=== PATIENT | male | born 1975 | race Caucasian/White ===

== ENCOUNTER 2017-01-27 19:17 | Emergency (ER) | payer MEDICAID, OTHER ==
[~2017-01-27] VITALS: Ht 182.9 cm; Wt 106.0 kg
[~2017-01-27 19:17] MED LIST: ACET500C5 PO; IBUP800T25 PO; PANT40TA3 PO; POLY17PO6 PO; RANI-347 PO
[2017-01-27 19:37] VITALS: Ht 182.9 cm; Wt 106.0 kg
[2017-01-27] MEDS ORDERED: ONDANSETRON 4 MG INJ IV STA (22:26)
[2017-01-27] MEDS ORDERED: DIPHENHYDRAMINE 50 MG INJ IV STA (22:26)
[2017-01-27] MEDS ORDERED: HYDROCODONE/APAP (5/325) TAB PO ONE (22:30)
--- NOTE | 2017-01-27 23:07 | RADRPT ---
PROCEDURE: CT head, without contrast. CLINICAL INDICATION: Headache. TECHNIQUE: Noncontrast CT examination of the head, with axial, sagittal and coronal reformatted im ages. Automated dose exposure control was employed. CTDI: 43.38 and DLP: 720.23. COMPARISON: None. FINDINGS: No acute hemorrhage. Subarachnoid spaces are substantially preserved and symmetric. Ventricles ar e unremarkable. Dystrophic calcifications in the bilateral basal ganglia, otherwise nonspecific. No mass effect. [place]-white matter distinction is preserved without evident decreased attenuation t o suggest acute or recent infarct. Sinuses and osseous structures are unremarkable. IMPRESSION: No acute process in the head. RPTAT: [facility] Physician Jihan Date Time Electronically viewed and signed by Physician Jihan on 01/27/2017 23:06 /
[2017-01-27 23:09] LABS: ADD SCAN DIFF NO
[2017-01-27 23:10] LABS: BASOPHILS % 0.3 % (0.0-2.0); EOSINOPHILS # 0.2 10^3/ul (0.0-0.5); EOSINOPHILS % 1.9 % (0.0-7.0); HEMATOCRIT 41.5 % (42.0-52.0); HEMOGLOBIN 13.9 g/dl (14.0-18.0); LYMPHOCYTES # 4.1 10^3/ul (0.8-2.9); LYMPHOCYTES % 42.6 % (15.0-51.0); MEAN CORPUSCULAR HEMOGLOBIN 29.7 pg (29.0-33.0); MEAN CORPUSCULAR HGB CONC 33.5 g/dl (32.0-37.0); MEAN CORPUSCULAR VOLUME 88.7 fl (82.0-101.0); MEAN PLATELET VOLUME 9.7 fl (7.4-10.4); MONOCYTE # 0.9 10^3/ul (0.3-0.9); MONOCYTES % 8.8 % (0.0-11.0); NEUTROPHIL # 4.4 10^3/ul (1.6-7.5); NEUTROPHILS % 46.1 % (39.0-77.0); PLATELET COUNT 301 10^3/UL (140-415); RED BLOOD COUNT 4.68 10^6/ul (4.70-6.10); WHITE BLOOD COUNT 9.6 10^3/ul (4.8-10.8)
[2017-01-27 23:21] LABS: INR 0.88; PROTIME 11.9 Sec (12.2-14.2); PT RATIO 0.9
[2017-01-27 23:22] VITALS: BP 142/85; PULSE 63; RESP 18; TEMP 98.1
[2017-01-27 23:22] LABS: PARTIAL THROMBOPLASTIN TIME 30.1 Sec (25.0-35.0)
[2017-01-27 23:27] LABS: CALCIUM 9.1 mg/dl (8.4-10.2); CREATININE 1.12 mg/dl (0.61-1.24); POTASSIUM 4.1 mmol/L (3.5-5.1)
--- NOTE | 2017-01-27 23:49 | ERD ---
ER Documentation Chief Complaint Date/Time DATE: 01/27/17 TIME: 23:48 Chief Complaint headache x 2 weeks HPI This pleasant 41-year-old male patient presents to emergency department today with his . Patient Greek-speaking, able to provide translation. Reports 2 weeks of headache, headache not improving with Tylenol or Advil, patient reports difficulty sleeping, that the headache is not allowing him to sleep at night. Pain starts in the back of his neck and radiates to the top of his head, patient has pain in his right ear, 9 out of 10 on pain scale. Pain is described as sharp and throbbing. Patient denies any photosensitivity, neck stiffness, fever or chills. Patient has never had a headache like this in the past. Does not know the exact time when headaches started. Patient is noted to be hypertensive in triage, denies history of hypertension. Patient is on no routine medication, has no history of cardiovascular disease, hyperlipidemia, diabetes, chest pain shortness of breath or dizziness. ROS All systems reviewed and are negative except as per history of present illness. Medications Home Meds Active Scripts Ibuprofen* (Motrin*) 600 Mg Tab, 600 MG PO Q6, #30 TAB Prov:VINCENT CORAE 01/28/17 Acetaminophen* (Tylophen*) 500 Mg Capsule, 1 CAP PO Q6H Y for PAIN AND OR ELEVATED TEMP, #30 CAP Prov:KENROY GARCÍA PA-C 07/17/16 Polyethylene Glycol* (Miralax*) 17 Gm Powd.pack, 17 GM PO DAILY, #14 Prov:KENROY GARCÍA PA-C 07/17/16 Ibuprofen* (Motrin*) 800 Mg Tab, 800 MG PO Q6, #30 TAB Prov:KENROY GARCÍA PA-C 07/17/16 Pantoprazole* (Protonix*) 40 Mg Tablet., 40 MG PO DAILY, #20 TAB Prov:DEBORAH CHAIREZ MD 06/21/16 Reported Medications Ranitidine Hcl* (Ranitidine Hcl*) 75 Mg Tablet, 75 MG PO DAILY Y for HEARTBURN, #60 TAB 06/21/16 Allergies Allergies: Coded Allergies: No Known Drug Allergies (Verified Allergy, Unknown, 06/21/16) PMhx/Soc History of Surgery: No Anesthesia Reaction: No Hx Neurological Disorder: No Hx Respiratory Disorders: No Hx Cardiac Disorders: No Hx Psychiatric Problems: No Hx Miscellaneous Medical Probl: No Hx Alcohol Use: No Hx Substance Use: No Hx Tobacco Use: No Physical Exam Vitals Hypertension 176/80. Patient reassessed after medication for pain decreased hypertension to 142/85. Triage notes reviewed Physical Exam Const: No acute distress Head: Atraumatic Eyes: Normal Conjunctiva PERRLA, EOMI ENT: Bilateral tympanic membranes translucent with positive light reflex auditory canals are clear, nasal mucosa edematous, moist, no rhinorrhea. Pharynx moist. Tongue midline. Neck: No cervical point tenderness. No paraspinal muscle tenderness full range of motion with extension, flexion, lateral bending, and rotation.~ No meningismus. Resp: Chest rises and falls symmetrically, Cardio: Regular rate and rhythm, no murmurs Abd: Skin: Back: Neuro: Alert and oriented Face: EOMI, face and pharynx with normal sensation and function Motor: Normal strength throughout Sensation: Normal sensation throughout Speech: Normal Cerebel: Normal coordination Normal gait Normal finger to nose DTR: 2+ and symmetric upper/lower extremities Psych: Normal Mood and Affect Results 24 hrs Laboratory Tests Test 01/27/17 22:50 White Blood Count 9.610^3/ul Red Blood Count 4.6810^6/ul Hemoglobin 13.9g/dl Hematocrit 41.5% Mean Corpuscular Volume 88.7fl Mean Corpuscular Hemoglobin 29.7pg Mean Corpuscular Hemoglobin Concent 33.5g/dl Red Cell Distribution Width 13.0% Platelet Count 92878^3/UL Mean Platelet Volume 9.7fl Neutrophils % 46.1% Lymphocytes % 42.6% Monocytes % 8.8% Eosinophils % 1.9% Basophils % 0.3% Nucleated Red Blood Cells % 0.0/100WBC Neutrophils # 4.410^3/ul Lymphocytes # 4.110^3/ul Monocytes # 0.910^3/ul Eosinophils # 0.210^3/ul Basophils # 0.010^3/ul Nucleated Red Blood Cells # 0.010^3/ul Prothrombin Time 11.9Sec Prothrombin Time Ratio 0.9 INR International Normalized Ratio 0.88 Activated Partial Thromboplast Time 30.1Sec Sodium Level 141mmol/L Potassium Level 4.1mmol/L Chloride Level 105mmol/L Carbon Dioxide Level 29mmol/L Anion Gap 11 Blood Urea Nitrogen 21mg/dl Creatinine 1.12mg/dl Glucose Level 94mg/dl Calcium Level 9.1mg/dl Current Medications Medications (Trade) Dose Ordered Sig/Toñito Route PRN Reason Start Time Stop Time Status Last Admin Dose Admin Acetaminophen/ Hydrocodone Bitart ([place] (5/325)) 1 tab ONCE ONCE PO 01/27/17 22:30 01/27/17 22:31 DC 01/27/17 22:56 Ondansetron HCl (Zofran Inj) 4 mg ONCE STAT IV 01/27/17 22:26 01/27/17 22:31 DC 01/27/17 22:56 Diphenhydramine HCl (Benadryl) 25 mg ONCE STAT IV 01/27/17 22:26 01/27/17 22:31 DC 01/27/17 22:56 I Interpretation text CBC shows no evidence of hemorrhage or infection Chemistry shows no evidence of significant electrolyte abnormalities or renal insufficiency Liver function tests shows no evidence of acute biliary or hepatic dysfunction Coagulation study showed no concerning coagulpathy Lipase shows no evidence of acute pancreatitis Cardiac biomarkers show no evidence of acute myocardial injury or coronary ischemia BNP shows no evidence of acute congestive heart failure, and or volume overload. Procedures/MDM ROCEDURE: CT head, without contrast. CLINICAL INDICATION: Headache. TECHNIQUE: Noncontrast CT examination of the head, with axial, sagittal and coronal reformatted images. Automated dose exposure control was employed. CTDI: 43.38 and DLP: 720.23. COMPARISON: None. FINDINGS: No acute hemorrhage. Subarachnoid spaces are substantially preserved and symmetric. Ventricles are unremarkable. Dystrophic calcifications in the bilateral basal ganglia, otherwise nonspecific. No mass effect. [place]-white matter distinction is preserved without evident decreased attenuation to suggest acute or recent infarct. Sinuses and osseous structures are unremarkable. IMPRESSION: No acute process in the head. Physician Jihan Date Time Electronically viewed and signed by Physician Jihan on 01/27/2017 23:06 This pleasant 41-year-old male patient presents to the emergency department today with 2 week history of intermittent headache with no history of headaches. Patient reports the headache is sharp, intermittent change in vision , without nausea or vomiting. Patient denies any history of cardiovascular disease, hypertension, hyperlipidemia. Patient is noted to have high blood pressure in the emergency department and will be treated for pain and headache before hypertension will be addressed. Patient receives Benadryl, Hartwick, and Zofran, CAT scan of brain without contrast :No acute hemorrhage.Subarachnoid spaces are substantially preserved and symmetric.Ventricles are unremarkable. Dystrophic calcifications in the bilateral basal ganglia, otherwise nonspecific.No mass effect. [place]-white matter distinction is preserved without evident decreased attenuation to suggest acute or recent infarct. Sinuses and osseous structures are unremarkable. CAT scan unremarkable for subarachnoid bleed or hemorrhage, I feel patient is appropriate for outpatient management follow-up with primary care for complete physical, keep blood pressure log to take with him to follow- up appointment. Treat headache with ibuprofen at onset, return to emergency department for headache not responding to treatment, change in vision, nausea, vomiting. I feel the patient is stable for discharge at this time. I have discussed results, examination findings, the treatment plan with the patient and family present prior to discharge. Indications for emergent reevaluation, side effects of medication were also discussed. All questions were answered. Patient verbalizes understanding and agrees with plan of care. Departure Diagnosis: Primary Impression: Headache Headache type: unspecified Headache chronicity pattern: episodic headache Intractability: not intractable Qualified Code: R51 - Nonintractable episodic headache, unspecified headache type Condition: Good Patient Instructions: Self-Care for Headaches Additional Instructions: Thank you for for coming to [facility] for your care today. Please ask your nurse or provider if you have questions about your care today and do not leave until all your questions have been answered. Please use any medications given as directed and follow-up with your doctor (or the doctor you were referred to) in the next 2-3 days. If you do not have a primary care doctor you may follow up at the [facility] (listed below). You may also use motrin and tylenol as needed for fever and/or pain unless instructed otherwise by your provider or nurse. Indications for more urgent follow-up have been discussed, but you may return to the Emergency Department at ANY time for any worrisome or worsening symptoms. If you have abdominal pain, please know that no test or exam you received is perfect and you should follow up within 8 hours for continued pain. If you had any imaging studies today, such as an X-Ray or CT Scan, these studies will be reviewed later by a radiologist. You will be called if there are important findings that were not identified today, so make sure the contact information you provided at registration is correct. If you received any narcotic pain control medicine today, such as Vicodin, Morphine or Dilaudid, your coordination and judgment may be affected for a number of hours. Please do not drive or operate heavy machinery, and you may want someone to assist you at home. If you were given a prescription for narcotic medication, be aware that it is very addictive- use sparingly and only if necessary. VINCENT COREA Jan 27, 2017 23:49
[2017-01-28] MEDS ORDERED: IBUP-1542 PO (00:58)
== END 2017-01-28 01:06 | disposition home or self-care (01) ==
LOC: FTE 19:17
DX: R51 Headache (principal); M54.2 Cervicalgia
CPT/HCPCS: 70450; 80048; 85025; 85610; 85730; 93005; J1200; J2405; Z7610; 36415; 96374; 96375

== ENCOUNTER 2017-10-07 21:58 | Emergency (ER) | payer MEDICAID, OTHER ==
[~2017-10-07] VITALS: Ht 175.3 cm; Wt 108.4 kg
[~2017-10-07 21:58] MED LIST changes: +IBUP-1542 PO
[2017-10-07 22:45] VITALS: Ht 175.3 cm; Wt 108.4 kg
--- NOTE | 2017-10-08 03:14 | ERD ---
ER Documentation Chief Complaint Chief Complaint testicular pain x1 wk, sudden onset. denies injury. pelvic pain w/urination HPI 42-year-old male presents to emergency department for complaints of a sudden onset of right testicular pain for 1 week, patient is complaining of right groin pelvic pain upon urination, sharp pain, 4/10 scale, radiates to the right testicular area. Patient denies any hematuria. Patient denies any penile discharge. Patient denies any scrotal redness or swelling. Patient denies any fever chills. Patient denies any trauma in affected area. Patient is not taking the medications to help with symptoms. Patient did not have any new sexual partner. ROS All systems reviewed and are negative except as per history of present illness. Medications Home Meds Active Scripts Ibuprofen* (Motrin*) 600 Mg Tab, 600 MG PO Q6, #30 TAB Prov:ANMOLVINCENT 01/28/17 Acetaminophen* (Tylophen*) 500 Mg Capsule, 1 CAP PO Q6H Y for PAIN AND OR ELEVATED TEMP, #30 CAP Prov:KENROY GARCÍA PA-C 07/17/16 Polyethylene Glycol* (Miralax*) 17 Gm Powd.pack, 17 GM PO DAILY, #14 Prov:KENROY GARCÍA PA-C 07/17/16 Ibuprofen* (Motrin*) 800 Mg Tab, 800 MG PO Q6, #30 TAB Prov:KENROY GARCÍA PA-C 07/17/16 Pantoprazole* (Protonix*) 40 Mg Tablet.dr, 40 MG PO DAILY, #20 TAB Prov:DEBORAH CHAIREZ MD 06/21/16 Reported Medications Ranitidine Hcl* (Ranitidine Hcl*) 75 Mg Tablet, 75 MG PO DAILY Y for HEARTBURN, #60 TAB 06/21/16 Allergies Allergies: Coded Allergies: No Known Drug Allergies (Verified Allergy, Unknown, 06/21/16) PMhx/Soc History of Surgery: No Anesthesia Reaction: No Hx Neurological Disorder: No Hx Respiratory Disorders: No Hx Cardiac Disorders: No Hx Psychiatric Problems: No Hx Miscellaneous Medical Probl: Yes (GERD) Hx Alcohol Use: No Hx Substance Use: No Hx Tobacco Use: No Smoking Status: Never smoker FmHx Family History: No coronary disease, No diabetes, No other Physical Exam Vitals Vital Signs Date Time Temp Pulse Resp B/P Pulse Ox O2 Delivery O2 Flow Rate FiO2 10/07/17 22:45 99.0 97 18 135/89 99 Physical Exam GENERAL: The patient is well developed and appropriate for usual state of health, in no apparent distress. CHEST: Clear to auscultation bilaterally. There are no rales, wheezes or rhonchi. HEART: Regular rate and rhythm. No murmurs, clicks, rubs or gallops. No S3 or S4. ABDOMEN: Soft, nontender and nondistended. Good bowel sounds. No rebound or guarding. No gross peritonitis. No gross organomegaly or masses. No Perdue sign or McBurney point tenderness. BACK: No midline or flank tenderness. EXTREMITIES: Equal pulses bilaterally. There is no peripheral clubbing, cyanosis or edema. No focal swelling or erythema. Full range of motion. Grossly neurovascularly intact. NEURO: Alert and oriented. Cranial nerves 2-12 intact. Motor strength in all 4 extremities with 5/5 strength. Sensation grossly intact. Normal speech and gait. SKIN: There is no apparent rash or petechia. The skin is warm and dry. HEMATOLOGIC AND LYMPHATIC: There is no evidence of excessive bruising or lymphedema. No gross cervical, axillary, or inguinal lymphadenopathy. : Mild tenderness on palpation on the right scrotal area, no swelling, no hernia noted. No penile discharge. No lesions noted. Left scrotal area normal. Nontender. Results 24 hrs Laboratory Tests Test 10/08/17 02:40 Urine Color YELLOW Urine Clarity CLEAR Urine pH 6.0 Urine Specific [place] 1.016 Urine Ketones NEGATIVEmg/dL Urine Nitrite NEGATIVEmg/dL Urine Bilirubin NEGATIVEmg/dL Urine Urobilinogen NEGATIVEmg/dL Urine Leukocyte Esterase NEGATIVELeu/ul Urine Microscopic RBC 0/HPF Urine Microscopic WBC 0/HPF Urine Hemoglobin 1+mg/dL Urine Glucose NEGATIVEmg/dL Urine Total Protein NEGATIVEmg/dl AMENDMENT: 10/08/2017 3:45:34 AM Darrius Capellan Md Addendum report: Mild spondylotic changes are involve the T7-T8 through T10-T11 levels. RPTAT: HRSR PROCEDURE: CT Abdomen and Pelvis without contrast. CLINICAL INDICATION: Abdominal pain. TECHNIQUE: CT scan of the abdomen and pelvis without contrast was performed on a multidetector high-resolution CT scanner. The patient was scanned without intravenous contrast. Coronal and sagittal reformatted images were obtained from the axial source images. Images were reviewed on a high-resolution PACS workstation. The total exam CTDI equals 22.33 mGy and the total exam DLP equals 1529.55 mGy-cm. DICOM images are available. One or more of the following dose reduction techniques were used: - Automated exposure control. - Adjustment of the mA and/or kV according to patient size. - Use of iterative reconstruction technique. COMPARISON: None. FINDINGS: CT abdomen: The lung bases are clear. The heart size is normal, without pericardial thickening or effusion. The liver is enlarged measuring 19 cm in long dimension. The apparent attenuation is diffusely decreased representing either hepatic steatosis ( favored) and/or infiltrative hepatocellular disease. No discrete hepatic mass . The spleen is normal in size and homogeneous in density. The stomach is grossly unremarkable. The pancreas as visualized is normal. The gallbladder and biliary tree are unremarkable and there is no evidence for biliary dilatation. The adrenal glands are symmetric and normal. The kidneys are symmetrically unremarkable as well. No renal calculus or obstructive uropathy or mass lesion is seen. The aorta is of normal caliber. Aortic vascular calcifications are present. There is no retroperitoneal lymphadenopathy. The joseluis hepatis region is clear. The bowel and mesentery, as visualized, are equally unremarkable. CT pelvis: The small bowel loops situated within the pelvis are unremarkable. The pelvic organs are normal. The pelvic sidewalls and inguinal regions are clear. The sigmoid colon and rectum are unremarkable. No mass, lymphadenopathy, or free fluid is seen. No acute inflammation is seen. The surrounding osseous structures are remarkable for degenerative spondylosis of the spine. No osteolytic or osteoblastic lesion is detected. IMPRESSION: 1. Hepatomegaly with diffuse decreased hepatic attenuation. Considerations include hepatic steatosis and/or infiltrative hepatocellular disease. RPTAT: HRSR Physician Corrina Date Time Electronically viewed and signed by Physician Corrina on 10/08/2017 03 :45 RR/ CC: TOMMIE VALLE NP PROCEDURE: Ultrasound of the scrotum. CLINICAL INDICATION: Testicular pain. TECHNIQUE: Ultrasound of the scrotum was performed utilizing color Doppler flow imaging COMPARISON: US PELVIS 07/17/2016 FINDINGS: Right testis: Size: 4.0 x 1.9 x 2.6 cm. Echotexture: Normal Doppler flow: Present Epididymal head: 0.8 x 0.9 x 0.4 cm Hydrocele: None Varicocele: None Left testis: Size: 3.9 x 1.8 x 2.6 cm Echotexture: Normal Doppler flow: Present Epididymal head: 0.9 x 0.8 x 0.7 cm Hydrocele: None Varicocele: None IMPRESSION: No evidence of testicular torsion. Further findings as detailed above. RPTAT: HRSR Physician Corrina Date Time Electronically viewed and signed by Physician Corrina on 10/08/2017 04 :04 RR/ CC: TOMMIE VALLE NP Procedures/MDM Medical decision making: Patient symptoms of pain nonspecific at this time, no visualized abscess, epididymitis, orchitis, no stones noted in the CT scan, no symptoms of any urinary tract infection. No penile discharge very low suspicion for any STDs. Patient was given prescription for Tylenol for mild to moderate pain, tramadol for severe pain, was advised to see urology specialist for further evaluation of symptoms of continues to persist. Patient was advised to return to emergency department for any worsening symptoms. Given copy of the CT scan to primary care doctor for further evaluation of hepatic results in the CT scan. Disposition: Home. Stable. Patient was also advised to Departure Diagnosis: Primary Impression: Testicular pain, right Condition: Stable Patient Instructions: Testicular Pain, Unclear Cause Additional Instructions: Patient was given prescription for Tylenol for mild to moderate pain, tramadol for severe pain, was advised to see urology specialist for further evaluation of symptoms of continues to persist. Patient was advised to return to emergency department for any worsening symptoms. Given copy of the CT scan to primary care doctor for further evaluation of hepatic results in the CT scan. TOMMIE VALLE NP Oct 08, 2017 03:14
[2017-10-08 03:34] LABS: ADD UMIC YES; UR ASCORBIC ACID NEGATIVE (NEGATIVE); UR BILIRUBIN (Dip) NEGATIVE (NEGATIVE); UR BLOOD (Dip) 1+ mg/dL (NEGATIVE); UR CLARITY CLEAR (CLEAR); UR COLOR YELLOW (YELLOW); UR GLUCOSE (Dip) NEGATIVE (NEGATIVE); UR KETONES (Dip) NEGATIVE (NEGATIVE); UR LEUKOCYTE ESTERASE (Dip) NEGATIVE Leu/ul (NEGATIVE); UR NITRITE (Dip) NEGATIVE (NEGATIVE); UR RBC 0 /HPF (0-5); UR SPECIFIC GRAVITY (Dip) 1.016 (1.003-1.030); UR TOTAL PROTEIN (Dip) NEGATIVE (NEGATIVE); UR UROBILINOGEN (Dip) NEGATIVE (NEGATIVE)
--- NOTE | 2017-10-08 03:38 | RADRPT ---
AMENDMENT: 10/08/2017 3:45:34 AM Darrius Capellan Md Addendum report: Mild spondylotic changes are involve the T7-T8 through T10-T11 levels. RPTAT: HRSR PROCEDURE: CT Abdomen and Pelvis without contrast. CLINICAL INDICATION: Abdominal pain. TECHNIQUE: CT scan of the abdomen and pelvis without contrast was performed on a multidetector hig h-resolution CT scanner. The patient was scanned without intravenous contrast. Coronal and sagittal reformatted images were obtained from the axial source images. Images were reviewed on a high-resol [employer] PACS workstation. The total exam CTDI equals 22.33 mGy and the total exam DLP equals 1529.55 m Gy-cm. DICOM images are available. One or more of the following dose reduction techniques were used: - Automated exposure control. - Adjustment of the mA and/or kV according to patient size. - Use of iterative reconstruction technique. COMPARISON: None. FINDINGS: CT abdomen: The lung bases are clear. The heart size is normal, without pericardial thickening or effusion. The liver is enlarged measuring 19 cm in long dimension. The apparent attenuation is diffusely decre ased representing either hepatic steatosis (favored) and/or infiltrative hepatocellular disease. No discrete hepatic mass . The spleen is normal in size and homogeneous in density. The stomach is thom ssly unremarkable. The pancreas as visualized is normal. The gallbladder and biliary tree are unre markable and there is no evidence for biliary dilatation. The adrenal glands are symmetric and norm al. The kidneys are symmetrically unremarkable as well. No renal calculus or obstructive uropathy or mass lesion is seen. The aorta is of normal caliber. Aortic vascular calcifications are present. There is no retroperit fields lymphadenopathy. The joseluis hepatis region is clear. The bowel and mesentery, as visualized, are equally unremarkable. CT pelvis: The small bowel loops situated within the pelvis are unremarkable. The pelvic organs are normal. T he pelvic sidewalls and inguinal regions are clear. The sigmoid colon and rectum are unremarkable. No mass, lymphadenopathy, or free fluid is seen. No acute inflammation is seen. The surrounding osseous structures are remarkable for degenerative spondylosis of the spine. No ost eolytic or osteoblastic lesion is detected. IMPRESSION: 1. Hepatomegaly with diffuse decreased hepatic attenuation. Considerations include hepatic steatosis and/or infiltrative hepatocellular disease. RPTAT: HRSR Henry Capellan, Physician Date Time Electronically viewed and signed by Henry Capellan, Physician on 10/08/2017 03:45 RR/
--- NOTE | 2017-10-08 04:04 | RADRPT ---
PROCEDURE: Ultrasound of the scrotum. CLINICAL INDICATION: Testicular pain. TECHNIQUE: Ultrasound of the scrotum was performed utilizing color Doppler flow imaging COMPARISON: US PELVIS 07/17/2016 FINDINGS: Right testis: Size: 4.0 x 1.9 x 2.6 cm. Echotexture: Normal Doppler flow: Present Epididymal head: 0.8 x 0.9 x 0.4 cm Hydrocele: None Varicocele: None Left testis: Size: 3.9 x 1.8 x 2.6 cm Echotexture: Normal Doppler flow: Present Epididymal head: 0.9 x 0.8 x 0.7 cm Hydrocele: None Varicocele: None IMPRESSION: No evidence of testicular torsion. Further findings as detailed above. RPTAT: HRSR Physician Corrina Date Time Electronically viewed and signed by Physician Corrina on 10/08/2017 04:04 /
[2017-10-08] MEDS ORDERED: TRAM50TA2 PO (04:14)
[2017-10-08] MEDS ORDERED: ACET500C5 PO (04:14)
[2017-10-08 04:42] VITALS: BP 133/76; PULSE 69; RESP 18; TEMP 98.2
[2017-10-08] MEDS ORDERED: traMADol 50 MG TAB PO ONE (05:00)
== END 2017-10-08 04:43 | disposition home or self-care (01) ==
LOC: FTE 21:58
DX: N50.811 Right testicular pain (principal)
CPT/HCPCS: 74176; 76870; 81001

== ENCOUNTER 2018-05-06 07:15 | Emergency (ER) | END 2018-05-06 11:15 | disposition home or self-care (01) ==

== ENCOUNTER 2018-10-15 17:08 | Emergency (ER) | payer MEDICAID ==
[~2018-10-15] VITALS: Wt 102.5 kg
[~2018-10-15 17:08] MED LIST changes: +ELEC100080 PO; +HYDR-3980 PO; -IBUP800T25 PO; +IBUP800T48 PO; +ONDA4TAB8 PO; +TRAM50TA2 PO
[2018-10-15] MEDS ORDERED: ONDANSETRON 4 MG INJ IV STA (19:06)
[2018-10-15] MEDS ORDERED: SOD CHLORIDE 0.9% 1,000 ML IV STA (19:06)
[2018-10-15] MEDS ORDERED: morphine 4 MG/ML VIAL IV STA (19:06)
[2018-10-15] MEDS ORDERED: LIDOCAINE/MYLANTA 40 ML BTL PO ONE (20:00)
[2018-10-15] MEDS ORDERED: TYL500 PO (21:11)
[2018-10-15 21:29] VITALS: BP 127/74; PULSE 61; RESP 20
--- NOTE | 2018-10-16 02:36 | ERD ---
ER Documentation Chief Complaint Chief Complaint BIB SELF, CC: ABD. PAIN X 3 DAYS, WITH DIARRHEA STARTED TODAY HPI 43-year-old male presents for abdominal pain times 2 days. Patient's pain is noted to be in the right upper quadrant. He has some nausea without vomiting. He says the pain is 9 out of 10, pulsatile in nature. No prior similar symptoms. Patient notes that he has been having some diarrhea also. Patient took Motrin at home with only mild relief. Patient does have a history of GERD. No history of surgery. No history of alcohol use. Denies chest pain or shortness of breath. Denies fevers or chills. ROS All systems reviewed and are negative except as per history of present illness. Medications Home Meds Active Scripts Acetaminophen* (Tylenol*) 500 Mg Tab, 500 MG PO Q4H PRN for MILD PAIN LEVEL 1-3, #30 TAB Prov:DUSTINDEBORAH 10/15/18 Electrolyte,Oral (Pedialyte) 1,000 Ml Solution, 100 ML PO Q6 PRN for VOMITTING, #1000 ML Prov:KENROY GARCÍA PA-C 05/06/18 Acetaminophen* (Tylophen*) 500 Mg Capsule, 1 CAP PO Q6H PRN for PAIN AND OR ELEVATED TEMP, #30 CAP Prov:KENROY GARCÍA PA-C 05/06/18 Ondansetron Hcl* (Zofran*) 4 Mg Tablet, 4 MG PO Q6H for NAUSEA AND/OR VOMITING, #30 TAB Prov:KENROY GARCÍAC 05/06/18 Hydrocodone/Acetaminophen ([place] 10-325 Tablet) 1 Each Tablet, 1 TAB PO Q6H PRN for PAIN, #12 TAB Prov:KENROY GARCÍAC 05/06/18 Tramadol HCl (Tramadol HCl) 50 Mg Tablet, 50 MG PO Q6 PRN for SEVERE PAIN LEVEL 7-10, #20 TAB Prov:TOMMIE VALLE NP 10/08/17 Acetaminophen* (Tylophen*) 500 Mg Capsule, 1 CAP PO Q6H PRN for PAIN AND OR ELEVATED TEMP, #20 CAP Prov:TOMMIE VALLE NP 10/08/17 Ibuprofen* (Motrin*) 600 Mg Tab, 600 MG PO Q6, #30 TAB Prov:VINCENT COREA 01/28/17 Acetaminophen* (Tylophen*) 500 Mg Capsule, 1 CAP PO Q6H PRN for PAIN AND OR ELEVATED TEMP, #30 CAP Prov:KENROY GARCÍA PA-C 07/17/16 Polyethylene Glycol* (Miralax*) 17 Gm Powd.pack, 17 GM PO DAILY, #14 Prov:KENROY GARCÍA PA-C 07/17/16 Ibuprofen* (Motrin*) 800 Mg Tab, 800 MG PO Q6, #30 TAB Prov:KENROY GARCÍA PA-C 07/17/16 Pantoprazole* (Protonix*) 40 Mg Tablet.dr, 40 MG PO DAILY, #20 TAB Prov:DEBORAH CHAIREZ MD 06/21/16 Reported Medications Ranitidine Hcl* (Ranitidine Hcl*) 75 Mg Tablet, 75 MG PO DAILY PRN for HEARTBURN, #60 TAB 06/21/16 Allergies Allergies: Coded Allergies: No Known Drug Allergies (Verified Allergy, Unknown, 06/21/16) PMhx/Soc History of Surgery: No Anesthesia Reaction: No Hx Neurological Disorder: No Hx Respiratory Disorders: No Hx Cardiac Disorders: No Hx Psychiatric Problems: No Hx Miscellaneous Medical Probl: Yes (GERD) Hx Alcohol Use: No Hx Substance Use: No Hx Tobacco Use: No Smoking Status: Never smoker Physical Exam Vitals Vital Signs Date Temp Pulse Resp B/P (MAP) Pulse Ox O2 O2 Flow FiO2 Time Delivery Rate 10/15/18 98.4 61 20 127/74 98 Room Air 21:29 (91) 10/15/18 98.4 18:38 10/15/18 98.3 80 19 127/66 100 17:22 (86) Physical Exam Const: No acute distress Resp: Clear to auscultation bilaterally Cardio: Regular rate and rhythm, no murmurs Abd: Soft, non distended. Normal bowel sounds, there is mild tenderness to palpation of the right upper quadrant, no McBurney's point tenderness, no Perdue sign, no rebound or guarding noted Skin: No petechiae or rashes Back: No midline or flank tenderness Ext: No cyanosis, or edema Neur: Awake and alert Psych: Normal Mood and Affect Result Diagram: 10/15/18191410/15/181914 Results 24 hrs Laboratory Tests Test 10/15/18 19:10 10/15/18 19:15 Urine Color YELLOW Urine Clarity SLIGHTLY CLOUDY Urine pH 6.0 Urine Specific [place] 1.020 Urine Ketones NEGATIVE mg/dL Urine Nitrite NEGATIVE mg/dL Urine Bilirubin NEGATIVE mg/dL Urine Urobilinogen NEGATIVE mg/dL Urine Leukocyte Esterase NEGATIVE Hector/ul Urine Microscopic RBC 0 /HPF Urine Microscopic WBC 0 /HPF Urine Bacteria FEW /HPF Urine Hemoglobin NEGATIVE mg/dL Urine Glucose NEGATIVE mg/dL Urine Total Protein NEGATIVE mg/dl White Blood Count 8.4 10^3/ul Red Blood Count 4.72 10^6/ul Hemoglobin 14.0 g/dl Hematocrit 42.2 % Mean Corpuscular Volume 89.4 fl Mean Corpuscular Hemoglobin 29.7 pg Mean Corpuscular Hemoglobin Concent 33.2 g/dl Red Cell Distribution Width 12.2 % Platelet Count 278 10^3/UL Mean Platelet Volume 9.9 fl Immature Granulocytes % 0.200 % Neutrophils % 50.6 % Lymphocytes % 40.2 % Monocytes % 8.1 % Eosinophils % 0.4 % Basophils % 0.5 % Nucleated Red Blood Cells % 0.0 /100WBC Immature Granulocytes # 0.020 10^3/ul Neutrophils # 4.2 10^3/ul Lymphocytes # 3.4 10^3/ul Monocytes # 0.7 10^3/ul Eosinophils # 0.0 10^3/ul Basophils # 0.0 10^3/ul Nucleated Red Blood Cells # 0.0 10^3/ul Sodium Level 143 mmol/L Potassium Level 3.9 mmol/L Chloride Level 106 mmol/L Carbon Dioxide Level 29 mmol/L Anion Gap 8 Blood Urea Nitrogen 19 mg/dl Creatinine 1.15 mg/dl Est Glomerular Filtrat Rate mL/min > 60 mL/min Glucose Level 97 mg/dl Calcium Level 9.5 mg/dl Total Bilirubin 0.3 mg/dl Direct Bilirubin 0.00 mg/dl Indirect Bilirubin 0.3 mg/dl Aspartate Amino Transf (AST/SGOT) 36 IU/L Alanine Aminotransferase (ALT/SGPT) 36 IU/L Alkaline Phosphatase 53 IU/L Total Protein 7.9 g/dl Albumin 4.5 g/dl Globulin 3.40 g/dl Albumin/Globulin Ratio 1.32 Lipase 85 U/L Current Medications Medications Dose Sig/Toñito Start Time Status Last (Trade) Ordered Route PRN Stop Time Admin Dose Reason Admin Sodium 1,000 ml @ Q1H STAT 10/15/18 DC 10/15/18 Chloride 1,000 mls/hr IV 19:06 10/15/18 19:10 20:05 Morphine 4 mg ONCE STAT 10/15/18 DC 10/15/18 Sulfate IV 19:06 10/15/18 19:12 (morphine) 19:08 Ondansetron 4 mg ONCE STAT 10/15/18 DC 10/15/18 HCl (Zofran IV 19:06 10/15/18 19:12 Inj) 19:08 40 ml ONCE ONCE 10/15/18 DC 10/15/18 Miscellaneous PO 20:00 10/15/18 20:05 Medication 20:01 (Gi Cocktail (2)) Procedures/MDM Medical Decision Making: Differential diagnosis includes but not limited to acute gastroenteritis, appendicitis, cholecystitis, pancreatitis. Patient appeared well on physical exam. Nontoxic appearing. There is right upper quadrant abdominal tenderness to palpation. Labs: CBC showed no anemia, no elevated WBC to suggest infection CMP showed no electrolyte abnormalities, there was normal kidney and liver function Lipase was normal UA was negative for infection Imaging: CT abdomen pelvis without contrast showed fatty liver, No evidence of bowel obstruction or inflammation. There is no appendicitis. No renal or ureteral calculi with no evidence of hydronephrosis. Small fat containing supraumbilical hernia. Patient likely has an acute gastroenteritis. There is low suspicion for an acute abdomen at this point. ED course: Patient was given IV normal saline, morphine, Zofran, GI cocktail. Symptoms improved with treatment. Symptomatic treatment discussed with patient who agrees with plan. Patient given prescription for Tylenol. Advised regarding importance of oral hydration. Patient advised to follow up with PCP in 1-2 days. Patient advised to return to ED for new or worsening symptoms. Patient stable on discharge from the ED. Disclaimer: Inadvertent spelling and grammatical errors are likely due to EHR/dictation software use and do not reflect on the overall quality of patient care. Also, please note that the electronic time recorded on this note does not necessarily reflect the actual time of the patient encounter. Departure Diagnosis: Primary Impression: Abdominal pain Condition: Fair Patient Instructions: Abdominal Pain Referrals: COMM[facility]ITY CLIN[facility] YOU HAVE RECEIVED A MEDICAL SCREENING EXAM AND THE RESULTS INDICATE THAT YOU DO NOT HAVE A CONDITION THAT REQUIRES URGENT TREATMENT IN THE EMERGENCY DEPARTMENT. FURTHER EVALUATION AND TREATMENT OF YOUR CONDITION CAN WAIT UNTIL YOU ARE SEEN IN YOUR DOCTORS OFFICE WITHIN THE NEXT 1-2 DAYS. IT IS YOUR RESPONSIBILITY TO MAKE AN APPOINTMENT FOR FOLOW-UP CARE. IF YOU HAVE A PRIMARY DOCTOR --you should call your primary doctor and schedule an appointment IF YOU DO NOT HAVE A PRIMARY DOCTOR YOU CAN CALL OUR PHYSICIAN REFERRAL HOTLINE AT IF YOU CAN NOT AFFORD TO SEE A PHYSICIAN YOU CAN CHOSE FROM THE FOLLOWING [facility] [address] [facility] [address] [facility] [facility] [address] [facility] [address] [facility] [address] [facility] [facility]. [address] Additional Instructions: Llame al doctor MAANA y abril orestes AVEL PARA DENTRO DE 1-2 YANG.Dgale a la secretaria que nosotros le instruimos hacer esta avel.Avise o llame si lemus condicin se empeora antes de la avel. Regresa aqui si peor o no mejor. DEBORAH CHAN DO Oct 16, 2018 02:35
== END 2018-10-15 21:34 | disposition home or self-care (01) ==
LOC: FTE 17:08
DX: R10.9 Unspecified abdominal pain (principal)
CPT/HCPCS: 74176; 80053; 81001; 83690; 85025; J2270; J2405; J7030; Z7610; 36415; 81003; 96361; 96374; 96375

== ENCOUNTER 2018-11-09 21:59 | Emergency (ER) | payer MEDICAID ==
[~2018-11-09] VITALS: Ht 172.7 cm; Wt 103.0 kg
[~2018-11-09 21:59] MED LIST changes: -RANI-347 PO; +RANI-513 PO; +TYL500 PO
[2018-11-09] MEDS ORDERED: KETOROLAC 30 MG INJ IV STA (22:42)
[2018-11-09 22:49] VITALS: Ht 172.7 cm; Wt 103.0 kg
[2018-11-09] MEDS ORDERED: IBUP-1542 PO (23:48)
--- NOTE | 2018-11-10 00:41 | ERD ---
ER Documentation Chief Complaint Chief Complaint STERNAL CHEST PAIN HPI Patient is a 43-year-old male with gastritis who presents with chest pain. The patient's symptoms started today at 9 PM. The pain comes and goes. It lasts 5 minutes at a time. And sharp. He has had no treatment as of yet. Upon review of old medical records this is the patient's 10th visit to the ER since 2012 for pain complaints. He does have a primary doctor. ROS All systems reviewed and are negative except as per history of present illness. Medications Home Meds Active Scripts Ibuprofen* (Motrin*) 600 Mg Tab, 600 MG PO Q6H PRN for PAIN AND OR ELEVATED TEMP, #30 TAB Prov:DENISHA JACOB MD 11/09/18 Discontinued Reported Medications Ranitidine Hcl* (Ranitidine Hcl*) 75 Mg Tablet, 75 MG PO DAILY PRN for HEARTBURN, #60 TAB 06/21/16 Discontinued Scripts Acetaminophen* (Tylenol*) 500 Mg Tab, 500 MG PO Q4H PRN for MILD PAIN LEVEL 1-3, #30 TAB Prov:DEBORAH CHAN DO 10/15/18 Electrolyte,Oral (Pedialyte) 1,000 Ml Solution, 100 ML PO Q6 PRN for VOMITTING, #1000 ML Prov:KENROY GARCÍA PA-C 05/06/18 Acetaminophen* (Tylophen*) 500 Mg Capsule, 1 CAP PO Q6H PRN for PAIN AND OR ELEVATED TEMP, #30 CAP Prov:KENROY GARCÍAC 05/06/18 Ondansetron Hcl* (Zofran*) 4 Mg Tablet, 4 MG PO Q6H for NAUSEA AND/OR VOMITING, #30 TAB Prov:KENROY GARCÍAC 05/06/18 Hydrocodone/Acetaminophen ([place] 10-325 Tablet) 1 Each Tablet, 1 TAB PO Q6H PRN for PAIN, #12 TAB Prov:KENROY GARCÍAC 05/06/18 Tramadol HCl (Tramadol HCl) 50 Mg Tablet, 50 MG PO Q6 PRN for SEVERE PAIN LEVEL 7-10, #20 TAB Prov:TOMMIE VALLE NP 10/08/17 Acetaminophen* (Tylophen*) 500 Mg Capsule, 1 CAP PO Q6H PRN for PAIN AND OR ELEVATED TEMP, #20 CAP Prov:TOMMIE VALLEWhit [employer] 10/08/17 Ibuprofen* (Motrin*) 600 Mg Tab, 600 MG PO Q6, #30 TAB Prov:VINCENT COREA 01/28/17 Acetaminophen* (Tylophen*) 500 Mg Capsule, 1 CAP PO Q6H PRN for PAIN AND OR ELEVATED TEMP, #30 CAP Prov:KENROY GARCÍA-C 07/17/16 Polyethylene Glycol* (Miralax*) 17 Gm Powd.pack, 17 GM PO DAILY, #14 Prov:KENROY GARCÍA-C 07/17/16 Ibuprofen* (Motrin*) 800 Mg Tab, 800 MG PO Q6, #30 TAB Prov:KENROY GARCÍAC 07/17/16 Pantoprazole* (Protonix*) 40 Mg Tablet.dr, 40 MG PO DAILY, #20 TAB Prov:DEBORAH CHAIREZ MD 06/21/16 Allergies Allergies: Coded Allergies: No Known Drug Allergies (Verified Allergy, Unknown, 06/21/16) PMhx/Soc Gastritis Medical and Surgical Hx: pt denies Surgical Hx, Unable to obtain History of Surgery: No Anesthesia Reaction: No Hx Neurological Disorder: No Hx Respiratory Disorders: No Hx Cardiac Disorders: No Hx Psychiatric Problems: No Hx Miscellaneous Medical Probl: No Hx Alcohol Use: No Hx Substance Use: No Hx Tobacco Use: No Smoking Status: Never smoker FmHx Family History: No diabetes, No coronary disease Physical Exam Vitals Vital Signs Date Temp Pulse Resp B/P (MAP) Pulse Ox O2 O2 Flow FiO2 Time Delivery Rate 11/09/18 98.5 72 16 132/82 100 Room Air 22:49 (99) 11/09/18 Nasal 2 22:49 Cannula 11/09/18 98.5 72 16 132/82 100 22:49 (99) 11/09/18 98.2 88 18 162/90 97 22:16 (114) Physical Exam Const: No acute distress Head: Atraumatic Eyes: Normal Conjunctiva ENT: Normal External Ears, Nose and Mouth. Neck: Full range of motion. No meningismus. Resp: Clear to auscultation bilaterally Cardio: Regular rate and rhythm, no murmurs Abd: Soft, non tender, non distended. Normal bowel sounds Skin: No petechiae or rashes Back: No midline or flank tenderness Ext: No cyanosis, or edema Neur: Awake and alert Psych: Normal Mood and Affect Result Diagram: 11/09/18224411/09/182244 Results 24 hrs Laboratory Tests Test 11/09/18 22:45 White Blood Count 9.2 10^3/ul Red Blood Count 4.83 10^6/ul Hemoglobin 14.3 g/dl Hematocrit 42.5 % Mean Corpuscular Volume 88.0 fl Mean Corpuscular Hemoglobin 29.6 pg Mean Corpuscular Hemoglobin Concent 33.6 g/dl Red Cell Distribution Width 12.2 % Platelet Count 286 10^3/UL Mean Platelet Volume 9.8 fl Immature Granulocytes % 0.300 % Neutrophils % 48.5 % Lymphocytes % 41.0 % Monocytes % 9.1 % Eosinophils % 0.7 % Basophils % 0.4 % Nucleated Red Blood Cells % 0.0 /100WBC Immature Granulocytes # 0.030 10^3/ul Neutrophils # 4.5 10^3/ul Lymphocytes # 3.8 10^3/ul Monocytes # 0.8 10^3/ul Eosinophils # 0.1 10^3/ul Basophils # 0.0 10^3/ul Nucleated Red Blood Cells # 0.0 10^3/ul Sodium Level 143 mmol/L Potassium Level 4.0 mmol/L Chloride Level 101 mmol/L Carbon Dioxide Level 31 mmol/L Anion Gap 11 Blood Urea Nitrogen 22 mg/dl Creatinine 1.26 mg/dl Est Glomerular Filtrat Rate mL/min > 60 mL/min Glucose Level 98 mg/dl Calcium Level 10.1 mg/dl Troponin I < 0.012 ng/ml Current Medications Medications Dose Sig/Toñito Start Time Status Last (Trade) Ordered Route PRN Stop Time Admin Dose Reason Admin Ketorolac 30 mg ONCE STAT 11/09/18 DC 11/09/18 Tromethamine IV 22:42 22:48 (Toradol) 11/09/18 22:43 Procedures/MDM EKG read by me: Rate/Rhythm: Regular rate and rhythm at a normal rate Intervals: Normal Impression: No evidence of ischemia or arrhythmia Chest x-ray shows no pneumonia or pneumothorax per radiology. Patient is a 43-year-old male with no cardiac risk factors presents with chest pain. Troponin was negative. EKG and chest x-ray are negative. At this point I doubt acute coronary syndrome, pneumonia, pneumothorax, pulmonary embolism, or aortic dissection. He has no risk factors for acute coronary syndrome. However I do believe he needs close follow-up with his primary doctor within 24-48 hours. He can return sooner for any worsening symptoms. The patient u nderstands the plan and is okay for discharge at this time. He will be given ibuprofen for pain. Departure Diagnosis: Primary Impression: Chest pain Chest pain type: unspecified Qualified Codes: R07.9 - Chest pain, unspecified Condition: Fair Patient Instructions: Chest Pain, Uncertain Cause Referrals: Your doctor Additional Instructions: Llame al doctor MAANA y abril orestes AVEL PARA DENTRO DE 1-2 YANG.Dgale a la secretaria que nosotros le instruimos hacer esta avel.Avise o llame si lemus condicin se empeora antes de la avel. Regresa aqui si peor o no mejor. DENISHA JACOB MD Nov 10, 2018 00:41
[2018-11-10 00:42] VITALS: BP 134/85; PULSE 73; RESP 16
[2018-11-15] MEDS ORDERED: HYDR-4011 PO (22:13)
[2018-11-15] MEDS ORDERED: BUTA1CAP38 PO (22:13)
== END 2018-11-10 00:45 | disposition home or self-care (01) ==
LOC: E/R 21:59
DX: R07.9 Chest pain, unspecified (principal)
CPT/HCPCS: 36415; 71045; 80048; 84484; 85025; 93005; 96374; J1885; Z7502